=== PATIENT | male | born 1945 | race Caucasian/White ===

== ENCOUNTER 2021-04-02 18:22 | Emergency (ER) | payer MEDICARE, OTHER, SELFPAY ==
[2021-04-02] VITALS (25 sets, daily range): BP systolic 143–178; BP diastolic 72–97; PULSE 93–112; RESP 12–24; TEMP 37.1; O2SAT 94–98; BMI 26.6
--- NOTE | 2021-04-02 18:38 | DI.RAD.S_ITS ---
PROCEDURE: XR CHEST 1V INDICATIONS: chest pain TECHNIQUE: One view of the chest was acquired. COMPARISON: None. FINDINGS: Surgical changes and devices: None. Lungs and pleura: Lungs are clear. No pleural effusions or pneumothorax. Mediastinum: Mediastinal contours appear normal. Heart size is normal. Bones and chest wall: No suspicious bony lesions. Overlying soft tissues appear unremarkable. Age related degenerative changes are seen in the spine. IMPRESSION: No acute cardiopulmonary abnormality. Dictated by: Cesar Ceja M.D. on 04/02/2021 at 19:35 Approved by: Cesar Ceja M.D. on 04/02/2021 at 19:35
[2021-04-02 19:08] LABS: COVID19 -Nasal RAPID POSITIVE (Negative)
[2021-04-02 19:21] LABS: Alanine Aminotransferase 53 IU/L (<50); Albumin 3.8 g/dL (3.5-5.0); Albumin Globulin Ratio 1.2 (1.0-2.8); Alkaline Phosphatase 86 U/L (38-126); Aspartate Aminotransferase 50 IU/L (17-59); BUN Creatinine Ratio 16.5 (6-22); Bilirubin Total 0.4 mg/dL (0.2-1.3); Blood Urea Nitrogen 17 mg/dL (9-20); Calcium 8.5 mg/dL (8.4-10.2); Carbon Dioxide 28 mmol/L (22-32); Chloride 98 mmol/L (98-107); Creatine Kinase 164 U/L (55-170); Estimated Glomerular Filt Rate > 60.0 mL/min (>60); Globulin 3.2 g/dL (1.7-4.1); Glucose 141 mg/dL (80-110); HEMOLYSIS 16 (0-50); Lipase 112 U/L (23-300); Potassium 3.6 mmol/L (3.4-5.1); Sodium 133 mmol/L (137-145)
[2021-04-02 19:22] LABS: Add Manual Diff / Slide Review NO; Basophils Absolute Auto 100 /uL (0-100); Basophils Percent Auto 1.2 % (0-2); Eosinophils Absolute Auto 0 /uL (0-450); Eosinophils Percent Auto 0.5 % (2-4); Hematocrit 44.8 % (41-53); Hemoglobin 15.3 g/dL (13.5-17.5); Lymphocytes Absolute Auto 2100 /uL (1100-4500); Mean Corpuscular HGB Conc 34.1 % (30-36); Mean Corpuscular Hemoglobin 31.9 PG (26-34); Mean Corpuscular Volume 93.4 fL (80-100); Monocytes Absolute Auto 1100 /uL (0-900); Monocytes Percent Auto 11.6 % (3-14); Neutrophils Absolute Auto 6100 /uL (1500-7000); Neutrophils Percent Auto 64.7 % (50-75); Platelet Count 150 X10^3/uL (150-400); Red Blood Cell Count 4.79 X10^6/uL (4.5-5.9); White Blood Cell Count 9.4 X10^3/uL (4.5-11.0)
[2021-04-02 19:33] LABS: Troponin I < 0.012 ng/mL (0.01-0.034)
--- NOTE | 2021-04-02 19:33 | ED_ITS ---
HPI - Arrhythmia/Palpitations General Chief Complaint: Arrhythmia/Palpitations Stated Complaint: AFIB/possible COVID Time Seen by Provider: 04/02/21 19:26 Source: patient Mode of arrival: Ambulatory Limitations: no limitations History of Present Illness HPI narrative: 75-year-old male nonsmoker with history of AFib is not anticoagulated. He presents with the chief complaint of an exposure to COVID last week and the development of some cough, shortness of breath and fever over the course of the weekend. He denies much in the way of significant symptoms, he is not having any significant work of breathing. He does not require supplemental oxygen. He has not been vaccinated. He does have a history of atrial fibrillation and states that he thinks he went into at about 1:00 a.m. this afternoon. He feels palpitations but denies chest pain, shortness of breath, dizziness, weakness or lightheadedness. He takes an extended release diltiazem daily and then occasionally will take a 30 mg tablet when he is s ymptomatic from his AFib which did not provide any help today. He typically does not have high blood pressure and does not take medications, he routinely runs in the 110s to 120s. He denies any history of stroke or TIA, he has no history of congestive heart failure, he is not diabetic and has never had a heart attack. Related Data Previous Rx's Medication Instructions Recorded apixaban 5 mg tablet (Eliquis) 5 mg PO BID #60 tab 04/02/21 Allergies Allergy/AdvReac Type Severity Reaction Status Date / Time No Known Drug Allergies Allergy Verified 04/02/21 18:32 Review of Systems Review of Systems Narrative: GENERAL: Denies chills, fatigue, malaise, fever, sweats. HEENT: See HPI. RESPIRATORY: Denies dyspnea, cough, wheezing, hemoptysis, sputum. CARDIOVASCULAR: See HPI GASTROINTESTINAL: Denies nausea, vomiting, abdominal pain, diarrhea, constipation, melena. : Denies dysuria, frequency, incontinence, hematuria, urinary retention. MUSCULOSKELETAL: denies weakness, joint pain, or bony pain SKIN: Denies rash, skin lesions, or other NEUROLOGIC: Denies weakness, headache, numbness, change in speech, confusion, seizures, incoordination. PSYCHIATRIC: No concerning psychosocial issues. 12 point review of systems is negative except for those stated above Patient History Social History Smoking Status: Never smoker Smoking Status: Never smoker alcohol intake frequency: a few times a week Substance Use Type: marijuana Exam Narrative Exam Narrative: GENERAL: [75] year old patient appears stated age. Well- developed patient, in mild distress. HEAD: Atraumatic. Normocephalic. EYES: Pupils equal round and reactive. Extraocular motions intact. No scleral icterus. No injection or drainage. ENT: Nose without bleeding, purulent drainage. Throat without erythema, tonsillar hypertrophy or exudate. Airway patent. NECK: Trachea midline. Non tender CARDIOVASCULAR: Occasionally tachycardic and irregular rhythm without murmurs, gallops, or rubs. RESPIRATORY: Clear to auscultation. Breath sounds equal bilaterally. No wheezes, rales, or rhonchi. No significant work of breathing, use of accessory muscles, no conversational dyspnea, no hypoxia GASTROINTESTINAL: Abdomen soft, non-tender, nondistended. EXTREMITIES: No edema or joint tenderness. BACK: Nontender without deformity or crepitance. No flank tenderness. NEURO: AOx3. SKIN: No rash or erythema of visible areas Initial Vital Signs Initial Vital Signs: Vital Signs Temperature 98.8 F 04/02/21 18:27 Pulse Rate 112 H 04/02/21 18:27 Respiratory Rate 18 04/02/21 18:27 Blood Pressure 152/72 H 04/02/21 18:27 Pulse Oximetry 97 04/02/21 18:27 Procedures Cardioversion Consent Signed: Yes Indication: Atrial fibrillation Stability: Stable Number of attempts (shocks): 2 Joules used: 120 and 150 Cardiac rhythm post-cardioversion: Patient briefly converted to a sinus rhythm for between 5-10 seconds before Procedural Sedation Consent signed: Yes Time out performed: Yes Indication: cardioversion ASA Class: II Mallampati Airway Classification: Class II Preparation: color television console monitor applied, pulse oximeter, capnometry used, supplemental O2 applied, suction/airway equipment at bedside and IV secured IV Propofol dose (mg): 30 Intraservice time/total sedation time (min): 10 ED Sedation Level: Moderate (Concious) Patient Tolerated Procedure: Well Complications: none Course Orders Ordered: ED Orders 04/02/21 18:38 XR chest 1V Stat 04/02/21 18:40 EKG-12 Lead Stat 04/02/21 18:48 COVID19 -Nasal swab/Pre-Proc Stat Complete Blood Count AUTO DIFF Stat Comprehensive Metabolic Panel Stat Lipase Stat Troponin & CK Cardiac Panel Stat Discontinued Medications Apixaban (Apixaban 5 Mg Tablet) 5 mg PO NOW ONE Stop: 04/02/21 20:02 Last Admin: 04/02/21 20:39 Dose: 5 mg Documented by: JOLENE Propofol (Propofol 200 Mg/20 Ml Vial) 80 mg 1 mg/kg (80 mg) IV NOW ONE Stop: 04/02/21 20:02 Last Admin: 04/02/21 20:26 Dose: 30 mg Documented by: JOLENE Consultations Consultation #1: Discussion with Cardiology regarding approach to AFib in this patient. His chads Vasc score is 1, he is not anticoagulated but certain symptoms started only a few hours prior to his arrival. Though he is not experiencing chest pain or significant symptoms he is a good candidate for cardioversion. Consultation #2: After failed cardioversion I re-contacted Cardiology who recommends anticoagulation. We discussed the possibility of altering patient's chronic medications however patient's resting heart rate is only in the 50s and would not likely tolerate an increase an AV thi blocking agent. Vital Signs Vital signs: Vital Signs - 8 hr 04/02/21 19:30 04/02/21 19:35 04/02/21 19:40 Pulse Rate 105 H 99 H 105 H Respiratory Rate 16 12 16 Blood Pressure 154/77 H Pulse Oximetry 96 96 96 04/02/21 19:45 04/02/21 19:50 04/02/21 19:59 Pulse Rate 105 H 97 H 100 H Respiratory Rate 21 21 15 Blood Pressure 147/80 H Pulse Oximetry 97 96 96 04/02/21 20:00 04/02/21 20:10 04/02/21 20:13 Pulse Rate 93 H 99 H 107 H Respiratory Rate 21 17 19 Blood Pressure 147/80 H 163/76 H Pulse Oximetry 96 96 96 04/02/21 20:15 04/02/21 20:20 04/02/21 20:25 Pulse Rate 106 H 105 H 103 H Respiratory Rate 21 24 16 Blood Pressure Pulse Oximetry 96 96 96 04/02/21 20:26 04/02/21 20:30 04/02/21 20:35 Pulse Rate 102 H 99 H 95 H Respiratory Rate 21 20 14 Blood Pressure 178/89 H 146/97 H 165/94 H Pulse Oximetry 96 94 97 04/02/21 20:40 04/02/21 20:45 04/02/21 20:50 Pulse Rate 97 H 98 H 93 H Respiratory Rate 18 17 18 Blood Pressure 155/85 H 150/76 H 166/92 H Pulse Oximetry 97 98 97 04/02/21 21:00 04/02/21 21:30 Pulse Rate 100 H 93 H Respiratory Rate 21 22 Blood Pressure 149/90 H 143/78 H Pulse Oximetry 96 96 MDM - Arrhythmia/Palpitations Lab Data Result diagrams: 04/02/21 18:48 04/02/21 18:48 Labs: Lab Results 04/02/21 04/02/21 04/02/21 Range/Units 18:48 18:48 18:48 WBC 9.4 (4.5-11.0) X10^3/uL RBC 4.79 (4.5-5.9) X10^6/uL Hgb 15.3 (13.5-17.5) g/dL Hct 44.8 (41-53) % MCV 93.4 (80-100) fL MCH 31.9 (26-34) PG MCHC 34.1 (30-36) % RDW 13.0 (11.6-14.8) % Plt Count 150 (150-400) X10^3/uL Neut % (Auto) 64.7 (50-75) % Lymph % (Auto) 22.0 L (25-40) % [place] % (Auto) 11.6 (3-14) % Eos % (Auto) 0.5 L (2-4) % Baso % (Auto) 1.2 (0-2) % Neut # (Auto) 6100 (9804-8773) /uL Lymph # (Auto) 2100 (8553-5290) /uL [place] # (Auto) 1100 H (0-900) /uL Eos # (Auto) 0 (0-450) /uL Baso # (Auto) 100 (0-100) /uL Sodium 133 L (137-145) mmol/L Potassium 3.6 (3.4-5.1) mmol/L Chloride 98 (98-107) mmol/L Carbon Dioxide 28 (22-32) mmol/L BUN 17 (9-20) mg/dL Creatinine 1.03 (0.66-1.25) mg/dL Estimated GFR > 60.0 (>60) mL/min BUN/Creatinine Ratio 16.5 (6-22) Glucose 141 H (80-110) mg/dL Calcium 8.5 (8.4-10.2) mg/dL Total Bilirubin 0.4 (0.2-1.3) mg/dL AST 50 (17-59) IU/L ALT 53 H (<50) IU/L Alkaline Phosphatase 86 (38-126) U/L Total Creatine Kinase 164 (55-170) U/L CK-MB (CK-2) 1.07 (<2.37) ng/mL CK-MB (CK-2) Rel Index 0.7 L (1.5-5.0) % Troponin I < 0.012 (0.01-0.034) ng/mL Total Protein 7.0 (6.3-8.2) g/dL Albumin 3.8 (3.5-5.0) g/dL Globulin 3.2 (1.7-4.1) g/dL Albumin/Globulin Ratio 1.2 (1.0-2.8) Lipase 112 (23-300) U/L SARS-CoV-2 (PCR) Positive H (Negative) MDM Narrative Medical decision making narrative: Patient presents with mild COVID type symptoms after an exposure last week. He is in no respiratory distress and not require supplemental oxygen. Additionally he entered into atrial fibrillation this afternoon. To attempts at cardioversion were unsuccessful and after lengthy discussion between myself and patient we elect to initiate anticoagulation and encouraged close follow-up. Fe she, labs and EKG faxed to Cardiology. Return precautions given and questions answered to his apparent satisfaction Discharge Plan Departure Patient Disposition: Home Clinical Impression: COVID-19 Atrial fibrillation Qualifiers: Atrial fibrillation type: paroxysmal Qualified Code(s): I48.0 - Paroxysmal at ria fibrillation Instructions: DI for Atrial Fibrillation, DI for COVID-19 (Suspected or Confirm ed ) Activity Restrictions/Additional Instructions: *You have been diagnosed with [ COVID-19 / Atrial Fibrillation] *What to do: * per recommendations from the CDC and the [facility] Department of Health * stay home except to get medical care. Restrict activities outside your home, except for getting medical care. Do not go to work, school, or public areas. Avoid using public transportation, ride sharing, or taxis. * separate yourself from other people in your home. * call ahead before visiting your doctor * Wear a facemask * Cover your coughs and sneezes * Clean your hands often * Avoid sharing household items * Clean all high-touch services every day * Monitor your symptoms and seek prompt medical attention if your illness is worsening, particularly with difficulty in breathing. You may discontinue your isolation when: 1. You have been fever-free for at least 24 hours without the use of fever reducing medication, AND 2. Your symptoms are getting better 3. At least 10 days have passed since symptoms first appeared Individuals with laboratory confirmed COVID-19 who have not had any symptoms may discontinue home isolation when at least 10 days have passed since the date of their first COVID-19 diagnostic test and have had no subsequent illness Prescriptions: New Eliquis 5 mg tablet 5 mg PO BID Qty: 60 RF: 0 Referrals: Cheryl Maddox MD [Physician] -
[2021-04-02 19:36] LABS: CKMB % Relative Index 0.7 % (1.5-5.0); Creatine Kinase MB 1.07 ng/mL (<2.37)
[2021-04-02] MEDS: propofoL 200 MG/20 ML VIAL 80 MG IV (20:26)
[2021-04-02] MEDS: APIXABAN 5 MG TABLET PO (20:39)
== END 2021-04-02 22:18 | disposition home or self-care (01) ==
PROVIDERS: Emergency Provider Emergency Medicine
DX: U07.1 COVID-19 (principal); I48.0 Paroxysmal atrial fibrillation; R06.02 Shortness of breath; R50.9 Fever, unspecified
CPT/HCPCS: 36415; 71045; 80053; 82550; 82553; 83690; 84484; 85025; 87635; 92960; 93005; 99152; 99285; C9803; J2704

== ENCOUNTER 2021-04-05 15:04 | Emergency (ER) | payer MEDICARE, OTHER, SELFPAY ==
[2021-04-05 15:19] VITALS: BP 146/65; PULSE 77; RESP 20; TEMP 36.9; O2SAT 95; BMI 26.6
[2021-04-05 18:57] VITALS: BP 146/65; PULSE 89; RESP 18; TEMP 39.3; O2SAT 94
[2021-04-05 19:18] VITALS: TEMP 37.9
[2021-04-05] MEDS: ACETAMINOPHEN 325 MG TABLET 975 MG PO (19:18)
--- NOTE | 2021-04-05 19:35 | DI.RAD.S_ITS ---
PROCEDURE: XR CHEST 1V INDICATIONS: covid TECHNIQUE: One view of the chest was acquired. COMPARISON: [facility], CR, XR CHEST 1V, 04/02/2021, 18:57. FINDINGS: Surgical changes and devices: None. Lungs and pleura: Patchy airspace opacity in the central lungs and mid lungs bilaterally, right greater than left. No pleural effusions or pneumothorax. Mediastinum: Mediastinal contours appear normal. Heart size is normal. Bones and chest wall: No suspicious bony lesions. Overlying soft tissues appear unremarkable. IMPRESSION: Patchy airspace opacity in both lungs. Findings are consistent with viral pneumonia in the appropriate clinical setting. Dictated by: Tereso Macias M.D. on 04/05/2021 at 19:58 Approved by: Tereso Macias M.D. on 04/05/2021 at 19:59
[2021-04-05 20:24] VITALS: TEMP 37.7
--- NOTE | 2021-04-05 21:22 | ED.URI ---
HPI - URI/Sore Throat General Chief Complaint: Upper Respiratory Symptoms Stated Complaint: COVID +,Afib Time Seen by Provider: 04/05/21 18:42 Source: patient Mode of arrival: Ambulatory Limitations: no limitations History of Present Illness HPI Narrative: Patient is a 75-year-old male with history of atrial fibrillation now on Eliquis for the last 3 days he has he is a known COVID positive patient without vaccination presenting today with his for generally not feeling well. He started having symptoms or was exposed on March 27 or , presented to the ER on April 02 where he was found to have fibrillation and cardioverted was attempted but was unsuccessful. Cardiology was contacted he was started on Eliquis but home medications were not altered. Today he presents with fever generalized fatigue an ongoing cough. He has no worsening shortness of breath. They do have a pulse oximeter at home which seems to be working intermittently but his oxygen has been doing well his however is low. They have both been treated with ivermectin. He denies any chest pain or palpitations. Related Data Previous Rx's Medication Instructions Recorded apixaban 5 mg tablet (Eliquis) 5 mg PO BID #60 tab 04/02/21 Allergies Allergy/AdvReac Type Severity Reaction Status Date / Time No Known Drug Allergies Allergy Verified 04/05/21 15:19 Review of Systems Review of Systems Narrative: GENERAL: See HPI HEENT: Denies sinus pain, ear pain, sore throat, difficulty swallowing, neck pain RESPIRATORY: Denies dyspnea, cough, wheezing, hemoptysis, sputum. CARDIOVASCULAR: See HPI GASTROINTESTINAL: Denies nausea, vomiting, abdominal pain, diarrhea, constipation, melena. : Denies dysuria, frequency, incontinence, hematuria, urinary retention, flank pain. MUSCULOSKELETAL: Denies weakness, joint pain, or bony pain SKIN: No rash, no erythema, no pruritus NEUROLOGIC: Denies weakness, dizziness, headache, numbness, change in speech, confusion PSYCHIATRIC: No concerning psychosocial issues. 12 point review of systems is negative except for those stated above and HPI Patient History Social History Smoking Status: Never smoker Smoking Status: Never smoker alcohol intake frequency: a few times a week Substance Use Type: marijuana Exam Initial Vital Signs Initial Vital Signs: Vital Signs Temperature 98.4 F 04/05/21 15:19 Pulse Rate 77 04/05/21 15:19 Respiratory Rate 20 04/05/21 15:19 Blood Pressure 146/65 H 04/05/21 15:19 Pulse Oximetry 95 04/05/21 15:19 GENERAL: Alert 75-year-old male and in no acute] distress. HEENT: Head atraumatic,EOMI, pupils reactive, face symmetric, [moist] mucous membranes CARDIOVASCULAR: Regular rate and rhythm without murmurs, rubs or gallops. RESPIRATORY: Breath sounds equal bilaterally, no wheezes rales or rhonchi. ABDOMEN: Soft, nontender. Normoactive bowel sounds all 4 quadrants. No guarding or rebound. EXTREMITIES: Normal range of motion, no clubbing or edema. Neurovascularly intact NEUROLOGICAL: Alert and oriented x4.Normal gait and speech. SKIN: Warm, dry, no laceration, no petechiae, no rashes or lesions. Course Orders Ordered: ED Orders 04/05/21 19:35 XR chest 1V Stat EKG-12 Lead Stat Discontinued Medications Acetaminophen (Acetaminophen 325 Mg Tablet) 975 mg PO NOW ONE Stop: 04/05/21 19:09 Last Admin: 04/05/21 19:18 Dose: 975 mg Documented by: JEANETTE Vital Signs Vital signs: Vital Signs - 8 hr 04/05/21 18:57 04/05/21 19:18 04/05/21 20:24 Temperature 102.7 F H 100.2 F H 99.9 F H Pulse Rate 89 Respiratory Rate 18 Blood Pressure 146/65 H Pulse Oximetry 94 MDM - URI/Sore Throat Imaging Data Chest x-ray: Radiologist's Impression: PROCEDURE: XR CHEST 1V INDICATIONS: covid TECHNIQUE: One view of the chest was acquired. COMPARISON: [facility], ABEL, XR CHEST 1V, 04/02/2021, 18:57. FINDINGS: Surgical changes and devices: None. Lungs and pleura: Patchy airspace opacity in the central lungs and mid lungs bilaterally, right greater than left. No pleural effusions or pneumothorax. Mediastinum: Mediastinal contours appear normal. Heart size is normal. Bones and chest wall: No suspicious bony lesions. Overlying soft tissues appear unremarkable. IMPRESSION: Patchy airspace opacity in both lungs. Findings are consistent with viral pneumonia in the appropriate clinical setting. Dictated by: Tereso Macias M.D. on 04/05/2021 at 19:58 ECG Data Interpretation: Sinus rhythm rate 73, p.r. interval 160 QRS [address] changes Q-waves noted in lead 3 only MDM Narrative Medical decision making narrative: Patient is a known COVID positive patient history of atrial fibrillation now in sinus rhythm actually appears well despite his fever of 102. His fever was treated oxygen level continues to be is above 90% does not meet admission criteria. The patient left quickly after his EKG his was being admitted for COVID sign she has discharge instructions. Discharge Plan Departure Patient Disposition: Home Clinical Impression: COVID-19 Instructions: DI for COVID-19 (Suspected or Confirmed ) Activity Restrictions/Additional Instructions: * if you have not yet been vaccinated is still recommended and encouraged that you do so once your infection has passed At home: -Monitor oxygen with pulse oximeter. -Wash hands frequently. -Stay isolated at home please follow the isolation instructions below. -Increase fluid intake. -you may take Tylenol as directed if needed for pain or fever Emergency warning signs for COVID-19, return to emergency department: - Difficulty breathing or shortness of breath, oxygen less than 90% - Persistent pain or pressure in the chest - New confusion or inability to arouse - Bluish lips or face CDC Guidelines for home isolation: - Stay away from others - Limit contact with pets and animals: If you must care for a pet, wash your hands before and after interacting with them - Wear a mask while in public all places - Cover your mouth and nose with a tissue when you cough or sneeze. Dispose of tissues in a lined trash can and wash your hands immediately with soap and water for at least 20 seconds. If soap and water are not available, clean hands with alcohol-based hand registered sales assistant that contains at least 60% alcohol. - Clean your hands often with soap and water for at least 20 seconds - Avoid touching your eyes, nose and mouth with unwashed hands - Do not share dishes, drinking glasses, cups, eating utensils, towels, or bedding with other people in your home. After using these items, wash them thoroughly with soap and water or put in the picking table worker. - Clean high-touch surfaces in your isolation area (?sick room? and bathroom) every day; let a caregiver clean and disinfect high-touch surfaces in other areas of the home. Clean the area or item with soap and water or another detergent if it is dirty. Then, use a household disinfectant. Prescriptions: No Action Eliquis 5 mg tablet 5 mg PO BID Qty: 60 RF: 0 Referrals: Sandip Spann MD [Primary Care Provider] -
== END 2021-04-05 22:03 | disposition home or self-care (01) ==
PROVIDERS: Emergency Provider Emergency Medicine; PCP Family Medicine
DX: U07.1 COVID-19 (principal); I48.91 Unspecified atrial fibrillation; Z79.01 Long term (current) use of anticoagulants
CPT/HCPCS: 71045; 93005; 99283; 99284